=== PATIENT | female | born 1965 | race Caucasian/White ===

== ENCOUNTER 2017-11-11 10:48 | Emergency (ER) | payer OTHER ==
[~2017-11-11] VITALS: Ht 157.5 cm; Wt 65.8 kg
[2017-11-11] MEDS ORDERED: Prednisone20 MG PO (12:38)
[2017-11-11] MEDS ORDERED: Cheratussin AC118 ML PO (12:38)
== END 2017-11-11 13:02 | disposition home or self-care (01) ==
LOC: ER 10:48
DX: J04.0 Acute laryngitis (principal); Z87.891 Personal history of nicotine dependence; Z88.5 Allergy status to narcotic agent; Z79.899 Other long term (current) drug therapy
CPT/HCPCS: 71046; 99283